=== PATIENT | male | born 1985 | race Caucasian/White ===

== ENCOUNTER 2017-11-29 09:26 | Emergency (ER) | payer MEDICARE, OTHER ==
[~2017-11-29] VITALS: Ht 177.8 cm; Wt 81.7 kg
[~2017-11-29 09:26] MED LIST: Ativan1 MG PO; DIVA500EC PO; HYDHCL25 PO; LACO50TA2; OXCA300 PO; PROP10 PO
[2017-11-29] MEDS ORDERED: Omeprazole20 M1 (09:50)
[2017-11-29 10:22] LABS: BASOPHILS PERCENT AUTO 0 % (0-2); EOSINOPHILS PERCENT AUTO 0 % (0-6); Hematocrit 44.8 % (37.0-53.0); Hemoglobin 16.1 g/dL (13.5-17.5); IMMATURE GRAN ABSOLUTE AUTO 0.02 K/mm3 (0.00-0.10); IMMATURE GRAN PERCENT AUTO 1 % (0-1); LYMPHOCYTES ABSOLUTE AUTO 1.21 K/mm3 (0.84-5.20); LYMPHOCYTES PERCENT AUTO 39 % (21-46); MONOCYTES ABSOLUTE AUTO 0.38 K/mm3 (0.16-1.47); MONOCYTES PERCENT AUTO 12 % (4-13); Mean Corpuscular HGB Conc 35.9 g/dL (31.5-36.5); Mean Corpuscular Volume 89 fL (80-100); Mean Platelet Volume 9.1 fL (9.1-12.4); NEUTROPHILS ABSOLUTE AUTO 1.48 K/mm3 (1.96-9.15); NEUTROPHILS PERCENT AUTO 48 % (41-73); Platelet Count 127 K/mm3 (150-400); RDW Coefficient Variation 12.7 % (11.7-14.2); RDW Standard Deviation 40.7 fL (35.1-46.3); Red Blood Cell Count 5.03 M/mm3 (4.30-5.90); White Blood Cell Count 3.09 K/mm3 (4.00-11.30)
[2017-11-29 10:40] LABS: Alanine Aminotransfer (ALT/SGP 34 U/L (12-78); Albumin/Globulin Ratio 1.5 (0.8-1.8); Alk Phos 73 U/L (50-136); Anion Gap 6 mmol/L (6-16); Aspartate Aminotrans (AST/SGOT 15 U/L (12-37); Bilirubin, Total 0.9 mg/dL (0.1-1.0); Blood Urea Nitrogen 8 mg/dL (8-24); Bun/Creatinine Ratio 10.5 (12.0-20.0); CO2, Blood 27 mmol/L (21-32); Calcium, Blood 8.9 mg/dL (8.5-10.1); Carbamazepine <0.5 ug/mL (4.0-12.0); Chloride, Blood 106 mmol/L (98-108); Creatinine, Blood 0.77 mg/dL (0.60-1.20); Globulin, Blood 2.6 g/dL (2.2-4.0); Glomerular Filtration Rate >60 (60-); Glucose, Blood 102 mg/dL (70-99); Potassium, Blood 4.6 mmol/L (3.5-5.5); Sodium, Blood 139 mmol/L (136-145); Total Protein, Blood 6.6 g/dL (6.4-8.2); Valproic Acid 132.3 ug/mL (50.0-100.0)
== END 2017-11-29 11:28 | disposition home or self-care (01) ==
LOC: ER 09:26
PROVIDERS: Emergency Medicine
DX: G40.909 Epilepsy, unspecified, not intractable, without status epilepticus (principal); T42.6X5A Adverse effect of other antiepileptic and sedative-hypnotic drugs, initial encounter; Z87.820 Personal history of traumatic brain injury; Z59.0 Homelessness; W17.89XA Other fall from one level to another, initial encounter; Z88.8 Allergy status to other drugs, medicaments and biological substances; Z79.899 Other long term (current) drug therapy
CPT/HCPCS: 36415; 80053; 80156; 80164; 85025; 99283

== ENCOUNTER 2025-07-12 14:54 | Observation (INO) | payer MEDICARE ==
[~2025-07-12] VITALS: Ht 177.8 cm; Wt 70.0 kg
[~2025-07-12 14:54] MED LIST changes: -LACO50TA2; +LACO50TA2 PO; +OMEP20ER PO; +OXCA150 PO; -OXCA300 PO
[2025-07-12 15:37] LABS: BASOPHILS ABSOLUTE AUTO 0.00 K/mm3 (0.00-0.23); BASOPHILS PERCENT AUTO 0 % (0-2); EOSINOPHILS ABSOLUTE AUTO 0.00 K/mm3 (0.00-0.68); EOSINOPHILS PERCENT AUTO 0 % (0-6); Hematocrit 40.8 % (37.0-53.0); Hemoglobin 14.2 g/dL (13.5-17.5); IMMATURE GRAN ABSOLUTE AUTO 0.00 K/mm3 (0.00-0.10); IMMATURE GRAN PERCENT AUTO 0 % (0-1); LYMPHOCYTES ABSOLUTE AUTO 1.22 K/mm3 (0.84-5.20); LYMPHOCYTES PERCENT AUTO 29 % (21-46); MONOCYTES ABSOLUTE AUTO 0.36 K/mm3 (0.16-1.47); MONOCYTES PERCENT AUTO 9 % (4-13); Mean Corpuscular HGB Conc 34.8 g/dL (31.5-36.5); Mean Corpuscular Volume 90 fL (80-100); NEUTROPHILS ABSOLUTE AUTO 2.57 K/mm3 (1.96-9.15); NEUTROPHILS PERCENT AUTO 62 % (41-73); NRBC ABSOLUTE 0.00 K/mm3 (0.00-0.02); NRBC Auto 0.0 /100 WBC (0.0-0.2); Platelet Count 160 K/mm3 (150-400); RDW Coefficient Variation 14.7 % (11.7-14.2); RDW Standard Deviation 47.8 fL (35.1-46.3)
[2025-07-12] MEDS ORDERED: KEPPRA XR750 MG PO (15:38)
[2025-07-12 15:49] LABS: Source, Urine Clean Catch
[2025-07-12 15:52] LABS: Bilirubin, Urine Neg (Neg); Color, Urine Yellow (P-Yellow); Glucose Qualitative, Urine Neg (Neg); Ketones, Urine 1+ (Neg); Leukocyte Esterase, Urine 1+ (Neg); Protein, Urine 1+ (Neg); Specific Gravity, Urine 1.025 (1.003-1.022); Urobilinogen, Urine 2+ (Normal)
[2025-07-12 15:56] LABS: Acetaminophen, Random <2.0 ug/mL (10.0-30.0); Salicylate <1.7 mg/dL (2.8-20.0)
[2025-07-12 16:04] LABS: Alanine Aminotransfer (ALT/SGP 52 U/L (12-78); Albumin, Blood 4.0 g/dL (3.4-5.0); Albumin/Globulin Ratio 1.6 (0.8-1.8); Anion Gap 6 mmol/L (3-11); Aspartate Aminotrans (AST/SGOT 16 U/L (12-37); Bilirubin, Total 0.5 mg/dL (0.1-1.0); Blood Urea Nitrogen 13 mg/dL (8-24); CO2, Blood 25 mmol/L (21-32); Calcium, Blood 8.4 mg/dL (8.5-10.1); Chloride, Blood 116 mmol/L (98-108); Creatinine, Blood 0.75 mg/dL (0.60-1.20); Globulin, Blood 2.5 g/dL (2.2-4.0); Glucose, Blood 130 mg/dL (70-99); Potassium, Blood 3.6 mmol/L (3.5-5.5); Sodium, Blood 143 mmol/L (136-145); Total Protein, Blood 6.5 g/dL (6.4-8.2)
[2025-07-12 16:04] LABS: U Amphetamine Screen Not Detected; U Barbituate Screen Not Detected; U Benzodiazapine Screen Not Detected; U Buprenorphine Screen Not Detected; U Cannabinoids Screen Not Detected; U Cocaine Screen Not Detected; U Methadone Screen Not Detected; U Methamphetamine Screen Not Detected; U Opiates Screen Not Detected; U Oxycodone Screen Not Detected; U Phencyclidine Screen Not Detected
[2025-07-12 16:05] LABS: Red Blood Cells, Urine 0-2 /hpf (0-2)
[2025-07-12 16:05] LABS: Ethanol (Alcohol), Blood, Med <3 mg/dL
[2025-07-12] MEDS ORDERED: Ziprasidone Mesylate 20 MG / Vial IM ONE (16:30)
[2025-07-12] MEDS ORDERED: CefTRIAXone 1000 MG Vial IM ONE ×2 (18:55→21:50)
[2025-07-13 06:02] LABS: BASOPHILS ABSOLUTE AUTO 0.00 K/mm3 (0.00-0.23); BASOPHILS PERCENT AUTO 0 % (0-2); EOSINOPHILS ABSOLUTE AUTO 0.00 K/mm3 (0.00-0.68); EOSINOPHILS PERCENT AUTO 0 % (0-6); Hematocrit 44.5 % (37.0-53.0); Hemoglobin 15.2 g/dL (13.5-17.5); IMMATURE GRAN ABSOLUTE AUTO 0.01 K/mm3 (0.00-0.10); IMMATURE GRAN PERCENT AUTO 0 % (0-1); LYMPHOCYTES ABSOLUTE AUTO 1.36 K/mm3 (0.84-5.20); LYMPHOCYTES PERCENT AUTO 40 % (21-46); MONOCYTES ABSOLUTE AUTO 0.30 K/mm3 (0.16-1.47); MONOCYTES PERCENT AUTO 9 % (4-13); Mean Corpuscular HGB Conc 34.2 g/dL (31.5-36.5); Mean Corpuscular Volume 92 fL (80-100); NEUTROPHILS ABSOLUTE AUTO 1.73 K/mm3 (1.96-9.15); NEUTROPHILS PERCENT AUTO 51 % (41-73); NRBC ABSOLUTE 0.00 K/mm3 (0.00-0.02); NRBC Auto 0.0 /100 WBC (0.0-0.2); Platelet Count 155 K/mm3 (150-400); RDW Coefficient Variation 14.8 % (11.7-14.2); RDW Standard Deviation 49.1 fL (35.1-46.3)
[2025-07-13 06:32] LABS: Anion Gap 6.0 mmol/L (3-11); Blood Urea Nitrogen 14.0 mg/dL (8-24); CO2, Blood 26.0 mmol/L (21-32); Calcium, Blood 8.6 mg/dL (8.5-10.1); Chloride, Blood 113.0 mmol/L (98-108); Creatinine, Blood 0.72 mg/dL (0.60-1.20); Glucose, Blood 85.0 mg/dL (70-99); Potassium, Blood 4.1 mmol/L (3.5-5.5); Sodium, Blood 141.0 mmol/L (136-145); Thyroid Stimulating Hormone 1.8 uIU/mL (0.360-4.800)
[2025-07-13] MEDS ORDERED: Enoxaparin 40 MG/0.4 ML SYR SC SCH (09:00)
[2025-07-13] MEDS ORDERED: Lactobacil 2-S.Thermo-Bifido 1 1 Cap PO SCH (09:00)
[2025-07-13 15:31] VITALS: BP 111/78
[2025-07-13 19:21] VITALS: BP 110/77
[2025-07-13] MEDS ORDERED: NS 250 ML IV PRN (20:00)
[2025-07-13] MEDS ORDERED: CefTRIAXone Sodium 1,000 MG in NS 100 ML IV SCH (21:00)
--- NOTE | 2025-07-13 22:08 | NUR ---
PT HAS C/O OF WANTING OVERGROWN TOENAILS CUT. REQUESTING TO HAVE THEM DONE TOMORROW.
[2025-07-14 03:19] VITALS: BP 86/52
[2025-07-14 03:32] VITALS: BP 12/74
--- NOTE | 2025-07-14 04:47 | NUR ---
SHIFT SUMMARY NOC PT A/O X 4. PLEASANT AND COOPERATIVE WITH CARE. VSS. ON 1:1 DIRECT OBSERVATION FOR SI. PT RECEIVING RX PER EMAR. PT HAD BM USING BEDPAN WITH 2PA. 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 PT SLEPT FOR MAJORIT OF SHIFT AFTER RECEIVING IV ABX. PT CURRENTLY RESTING WITH SITTER IN ROOM, BED IN LOWEST POSITION, AND CALL LIGHT WITHIN REACH.
[2025-07-14 06:23] LABS: BASOPHILS ABSOLUTE AUTO 0.00 K/mm3 (0.00-0.23); BASOPHILS PERCENT AUTO 0 % (0-2); EOSINOPHILS ABSOLUTE AUTO 0.00 K/mm3 (0.00-0.68); EOSINOPHILS PERCENT AUTO 0 % (0-6); Hematocrit 41.2 % (37.0-53.0); Hemoglobin 14.4 g/dL (13.5-17.5); IMMATURE GRAN ABSOLUTE AUTO 0.00 K/mm3 (0.00-0.10); IMMATURE GRAN PERCENT AUTO 0 % (0-1); LYMPHOCYTES ABSOLUTE AUTO 1.24 K/mm3 (0.84-5.20); LYMPHOCYTES PERCENT AUTO 36 % (21-46); MONOCYTES ABSOLUTE AUTO 0.32 K/mm3 (0.16-1.47); MONOCYTES PERCENT AUTO 9 % (4-13); Mean Corpuscular HGB Conc 35.0 g/dL (31.5-36.5); Mean Corpuscular Volume 91 fL (80-100); NEUTROPHILS ABSOLUTE AUTO 1.86 K/mm3 (1.96-9.15); NEUTROPHILS PERCENT AUTO 54 % (41-73); NRBC ABSOLUTE 0.00 K/mm3 (0.00-0.02); NRBC Auto 0.0 /100 WBC (0.0-0.2); Platelet Count 136 K/mm3 (150-400); RDW Coefficient Variation 14.8 % (11.7-14.2); RDW Standard Deviation 49.0 fL (35.1-46.3)
[2025-07-14 06:41] LABS: Anion Gap 7.0 mmol/L (3-11); Blood Urea Nitrogen 18.0 mg/dL (8-24); CO2, Blood 27.0 mmol/L (21-32); Calcium, Blood 8.0 mg/dL (8.5-10.1); Chloride, Blood 111.0 mmol/L (98-108); Creatinine, Blood 0.7 mg/dL (0.60-1.20); Glucose, Blood 103.0 mg/dL (70-99); Potassium, Blood 4.0 mmol/L (3.5-5.5); Sodium, Blood 141.0 mmol/L (136-145)
[2025-07-14 07:18] VITALS: BP 107/64
--- NOTE | 2025-07-14 12:52 | NUR ---
ASSUMED CARE A/O X 4 VSS PT IS DOING WELL AND OPTIMISTIC, CURRENTLY NO C/O PAIN NO DISTRESS NO SUICIDAL IDEATION, SITTER AT BEDSIDE TO ASSIST WITH CARE. HX OF LEFT SIDE WEAKNESS PT IS ABLE TO MOVE LEFT SIDE AND ABLE TO TRANSFER WITH MINIMAL ASSIST. OCCUPATION THERAPIST HELPED WITH PT MOBILITY AND WAS ABLE TO GET HIM UP TO THE CHAIR.
[2025-07-14 15:23] VITALS: BP 108/78
--- NOTE | 2025-07-14 18:41 | NUR ---
PT DID VERY WELL UP IN CHAIR FOR A FEW HOURS, PT WAS ABLE TO TRANSFER SELF BACK TO BED WITHOUT ANY ISSUES. PT HAS NO C/O PAIN AND HAS BEEN VERY COOPERATIVE WITH CARE. SITTER AT BEDSIDE
[2025-07-14 20:08] VITALS: BP 179/113
--- NOTE | 2025-07-14 22:37 | NUR ---
EARLIER IN NIGHT APPROXIMATELY 1945, PT STARTED SHAKING AND TOLD STAFF HE WAS HAVING A SEIZURE, BUT HE REMAIND A&O X4 AND CONTINUED TO ANSWER QUESTIONS, PT STATED HE NEEDED SOME ATIVAN, NO ATIVAN AVAILABLE, DID MEDICATE EARLY WITH HS MEDS. PT CALMED AND OTHER THEN ELEVATED VS NO OTHER CONCERNS.
[2025-07-15 04:46] VITALS: BP 109/75
--- NOTE | 2025-07-15 04:46 | NUR ---
PT A&O X4, VS ELEVATED AT BEGINING OF SHIFT, SLEPT WELL. 1:1 SITTER PRESENT AT BEDSIDE. PO INTAKE FAIR, USED URINAL, NO FURTHER STATEMENT OF SEIZURE ACTIVITY PER PT, UNSURE IF WAS TRUE SEIZURE. PLAN TO D/C TO INPATIENT PSYCHE.
[2025-07-15 07:22] VITALS: BP 107/67
[2025-07-15 11:44] LABS: OXCARB/ESLICARB METABOLITE MHD 19.8 ug/mL (10.0-35.0)
[2025-07-15 15:17] LABS: KEPPRA (LEVETIRACETAM) 20.6 ug/mL (10.0-40.0)
--- NOTE | 2025-07-15 17:32 | NUR ---
ASSUMED CARE PT A/O TODAY MORE SOMBER WITH A FLAT AFFECT YET COOPERATIVE WITH CARE. DR PARSONS REPORTED PT MEDICALLY STABLE BUT WAS NEEDING PLACEMENT FOR PT TRANSFER. PHYSICAL T WORKED WITH PT TODAY. STATED HE IS VERY STABLE AND POSSILBLY BACK TO BASELINE. PT WAS VERY PLEASED TO HAVE SHOWER TODAY, DID VERY WELL TRANSFERING AND MINIMAL ASSIST WITH BATHING NEEDED.
[2025-07-15 19:27] VITALS: BP 106/61
--- NOTE | 2025-07-16 03:47 | NUR ---
PT A&O X4, VS WNL, SITTER AT BEDSIDE, NO ISSUES THROUGH NIGHT. USES CALL SYSTEM APPROPRIATELY. PLAN TO D/C TO INPATIENT PSYCH.
[2025-07-16 05:52] LABS: BASOPHILS ABSOLUTE AUTO 0.00 K/mm3 (0.00-0.23); BASOPHILS PERCENT AUTO 0 % (0-2); EOSINOPHILS ABSOLUTE AUTO 0.00 K/mm3 (0.00-0.68); EOSINOPHILS PERCENT AUTO 0 % (0-6); Hematocrit 42.7 % (37.0-53.0); Hemoglobin 15.3 g/dL (13.5-17.5); IMMATURE GRAN ABSOLUTE AUTO 0.01 K/mm3 (0.00-0.10); IMMATURE GRAN PERCENT AUTO 0 % (0-1); LYMPHOCYTES ABSOLUTE AUTO 1.06 K/mm3 (0.84-5.20); LYMPHOCYTES PERCENT AUTO 35 % (21-46); MONOCYTES ABSOLUTE AUTO 0.34 K/mm3 (0.16-1.47); MONOCYTES PERCENT AUTO 11 % (4-13); Mean Corpuscular HGB Conc 35.8 g/dL (31.5-36.5); Mean Corpuscular Volume 89 fL (80-100); NEUTROPHILS ABSOLUTE AUTO 1.60 K/mm3 (1.96-9.15); NEUTROPHILS PERCENT AUTO 53 % (41-73); NRBC ABSOLUTE 0.00 K/mm3 (0.00-0.02); NRBC Auto 0.0 /100 WBC (0.0-0.2); Platelet Count 127 K/mm3 (150-400); RDW Coefficient Variation 14.3 % (11.7-14.2); RDW Standard Deviation 45.5 fL (35.1-46.3)
[2025-07-16 08:06] VITALS: BP 101/69
[2025-07-16 17:04] VITALS: BP 112/73
[2025-07-16 20:46] VITALS: BP 108/75
--- NOTE | 2025-07-17 04:26 | NUR ---
SHIFT SUMMARY: PT AOX4, SBA/1PA STAND PIVOT TO THE BSC. PT FLAT AND WITHDRAWN, BUT PLEASANT AND COOPERATIVE IN CARE. STATED VERBALLY THAT THIS IS A LOWER DOSE OF KEPPRA THAN WHAT HE NORMALLY TAKES, STATING THAT HE TAKES 3 750MG PILLS BID, UNABLE TO CONFIRM WITH PTS PHARMACY DUE TO NOC SHIFT. WILL PASS TO DAY SHIFT. PT TOLERATING MEDICATIONS WELL. NO ACUTE OVERNIGHT EVENTS. PT IN BED SLEEPING, BED IN LOWEST POSITION, CALL LIGHT IN REACH. CONTINUING CARE.
[2025-07-17 05:00] VITALS: BP 113/72
[2025-07-17 07:36] VITALS: BP 106/61
[2025-07-17] MEDS ORDERED: VISBIOME 112.51 EACH PO (14:14)
[2025-07-17] MEDS ORDERED: Prozac20 MG PO (14:14)
[2025-07-17] MEDS ORDERED: NICO21TP TOP (14:16)
[2025-07-17] MEDS ORDERED: OLAN5 PO (14:16)
--- NOTE | 2025-07-17 16:07 | NUR ---
pt dc this shift dc instruction gone over with pt and pt father whom stated understanding. pt was escorted to private vehicle via circular saw filer by w/c
== END 2025-07-17 15:32 | disposition home health service (06) ==
LOC: ER 14:54 → EOR 22:00 → MEDS 22:00
PROVIDERS: Family Medicine; Student in an Organized Health Care Education/Training Program; ADMIT Student in an Organized Health Care Education/Training Program
DX: F32.A Depression, unspecified (principal); R45.851 Suicidal ideations; F43.12 Post-traumatic stress disorder, chronic; F44.4 Conversion disorder with motor symptom or deficit; G93.40 Encephalopathy, unspecified; G40.909 Epilepsy, unspecified, not intractable, without status epilepticus; K21.9 Gastro-esophageal reflux disease without esophagitis; N39.0 Urinary tract infection, site not specified; B96.1 Klebsiella pneumoniae [K. pneumoniae] as the cause of diseases classified elsewhere; D69.6 Thrombocytopenia, unspecified; Z79.899 Other long term (current) drug therapy; Z87.820 Personal history of traumatic brain injury; Z99.3 Dependence on wheelchair; Z91.011 Allergy to milk products; Z88.8 Allergy status to other drugs, medicaments and biological substances
CPT/HCPCS: 36415; 80048; 80053; 80177; 80183; 80320; 81001; 84443; 85025; 87077; 87086; 87186; 96365; 96366; 96372; 96376; 97110; 97112; 97161; 97165; 97530; 97535; 99285-25; A9270; G0378; G0480; J0696; J1650; J3486; J7050

== ENCOUNTER 2025-07-26 09:55 | Emergency (ER) | payer MEDICARE ==
[~2025-07-26] VITALS: Ht 177.8 cm; Wt 81.7 kg
[~2025-07-26 09:55] MED LIST changes: +KEPPRA XR750 MG PO; +NICO21TP TOP; +OLAN5 PO; +Prozac20 MG PO; +VISBIOME 112.51 EACH PO
[2025-07-26 12:22] LABS: BASOPHILS ABSOLUTE AUTO 0.00 K/mm3 (0.00-0.23); BASOPHILS PERCENT AUTO 0 % (0-2); EOSINOPHILS ABSOLUTE AUTO 0.00 K/mm3 (0.00-0.68); EOSINOPHILS PERCENT AUTO 0 % (0-6); Hematocrit 45.3 % (37.0-53.0); Hemoglobin 16.1 g/dL (13.5-17.5); IMMATURE GRAN ABSOLUTE AUTO 0.01 K/mm3 (0.00-0.10); IMMATURE GRAN PERCENT AUTO 0 % (0-1); LYMPHOCYTES ABSOLUTE AUTO 1.20 K/mm3 (0.84-5.20); LYMPHOCYTES PERCENT AUTO 27 % (21-46); MONOCYTES ABSOLUTE AUTO 0.38 K/mm3 (0.16-1.47); MONOCYTES PERCENT AUTO 8 % (4-13); Mean Corpuscular HGB Conc 35.5 g/dL (31.5-36.5); Mean Corpuscular Volume 91 fL (80-100); NEUTROPHILS ABSOLUTE AUTO 2.92 K/mm3 (1.96-9.15); NEUTROPHILS PERCENT AUTO 65 % (41-73); NRBC ABSOLUTE 0.00 K/mm3 (0.00-0.02); NRBC Auto 0.0 /100 WBC (0.0-0.2); Platelet Count 171 K/mm3 (150-400); RDW Coefficient Variation 13.8 % (11.7-14.2); RDW Standard Deviation 45.9 fL (35.1-46.3)
[2025-07-26 13:00] LABS: Alanine Aminotransfer (ALT/SGP 49.0 U/L (12-78); Albumin, Blood 3.9 g/dL (3.4-5.0); Albumin/Globulin Ratio 1.4 (0.8-1.8); Anion Gap 10.0 mmol/L (3-11); Aspartate Aminotrans (AST/SGOT 29.0 U/L (12-37); Bilirubin, Total 0.7 mg/dL (0.1-1.0); Blood Urea Nitrogen 15.0 mg/dL (8-24); CO2, Blood 23.0 mmol/L (21-32); Calcium, Blood 8.3 mg/dL (8.5-10.1); Chloride, Blood 111.0 mmol/L (98-108); Creatinine, Blood 0.66 mg/dL (0.60-1.20); Globulin, Blood 2.7 g/dL (2.2-4.0); Glucose, Blood 94.0 mg/dL (70-99); Potassium, Blood 4.3 mmol/L (3.5-5.5); Sodium, Blood 140.0 mmol/L (136-145); Total Protein, Blood 6.6 g/dL (6.4-8.2)
[2025-07-26 14:51] VITALS: BP 127/78
== END 2025-07-26 14:55 | disposition home or self-care (01) ==
LOC: ER 09:55
PROVIDERS: Physician Assistant
DX: S01.21XA Laceration without foreign body of nose, initial encounter (principal); F17.200 Nicotine dependence, unspecified, uncomplicated; Z91.011 Allergy to milk products; Z79.899 Other long term (current) drug therapy; Z79.2 Long term (current) use of antibiotics; W19.XXXA Unspecified fall, initial encounter; Z88.8 Allergy status to other drugs, medicaments and biological substances
CPT/HCPCS: 12013; 70450; 72125; 80053; 85025; 93005; 93010; 99285-25; A9270